=== PATIENT | male | born 1955 | race Caucasian/White ===

== ENCOUNTER 2017-03-20 15:55 | Inpatient (IN) | payer MEDICAID ==
[2017-03-20] MEDS ORDERED: NS 1,000 ML IV ONE (16:06)
[2017-03-20] MEDS ORDERED: ONDANSETRON 4 MG/2 ML VIAL IVP ONE ×2 (16:06→17:14)
[2017-03-20] MEDS ORDERED: fentaNYL 100 MCG/2 ML INJ IVP ONE ×2 (16:06→16:47)
--- NOTE | 2017-03-20 16:18 | EDPHY ---
H & P Stated Complaint: fall 6 feet landing on rt side of body Time Seen by Provider: 03/20/17 16:06 HPI/ROS: CHIEF COMPLAINT: Right-sided rib pain HISTORY OF PRESENT ILLNESS: The patient is a 61-year-old man who fell off of a ladder while painting his house. He fell approximately 6 feet onto the right side of his ribs. He has severe rib pain and feels short of breath. He had no symptoms prior to his fall. He denies chest pain. He denies head neck or back pain. He has been ambulatory. He denies injuries to his arms or legs. No abdominal pain. REVIEW OF SYSTEMS: Constitutional: denies: chills, fever, recent illness, recent injury EENTM: denies: blurred vision, double vision, nose congestion Respiratory: denies: cough, shortness of breath Cardiac: denies: chest pain, irregular heart rate, lightheadedness, palpitations Gastrointestinal/Abdominal: denies: abdominal pain, diarrhea, nausea, vomiting, blood streaked stools Genitourinary: denies: dysuria, frequency, hematuria, pain Musculoskeletal: See HPI Skin: denies: lesions, rash, jaundice, bruising Neurological: denies: headache, numbness, paresthesia, tingling, dizziness, weakness Hematologic/Lymphatic: denies: blood clots, easy bleeding, easy bruising Immunologic/allergic: denies: HIV/AIDS, transplant Nursing assessment reviewed Vital signs reviewed saturating 91%. Blood pressure 100/60., diaphoretic Patient is alert not anxious or lethargic and in no distress HEAD: shows no evidence of trauma no raccoon eyes, no Rasmussen sign. NECK: is nontender and has painless range of motion, trachea is midline, NEXUS criteria negative (no midline tenderness no distracting injury no altered mental status no recent alcohol and no focal neuro deficits EYES: pupils equal round reactive to light and accommodating, extraocular muscles are intact no palsy or entrapment, no subconjunctival hemorrhage ENT: Normal external inspection, airway intact, no dental or oral injuries, no clotted nasal blood, no septal hematoma, no hemotympanum CARDIOVASCULAR: heart sounds normal, not tachycardic or bradycardic, Chest is non-tender no rib tenderness no palpable fracture, no crepitus, no subcutaneous emphysema RESPIRATORY: Decreased breath sounds on the right. Tenderness to the mid axillary line, no crepitus ABDOMEN: Abdomen is nontender in all 4 quadrants no guarding no rebound, no distention, no hernias, no masses or bruits. GENITAL/RECTAL: Normal external inspection, no blood at urethral meatus, Stable pelvis NEUROLOGIC/PSYCH: Oriented x3, cranial nerves normal as assessed, face symmetrical, sensation normal, motor grossly normal, not perseverating, cranial nerves II through XII intact normal reflexes Uriel Coma score: 15 SKIN: Intact, warm, dry, no ecchymosis, no lacerations, diaphoretic BACK: No CVA tenderness, no vertebral point tenderness, no muscle spasm normal range of motion EXTREMITIES: Atraumatic, pelvis stable, nontender able to bear weight, no pulse deficit, normal range of motion, normal color and temperature Source: Patient Exam Limitations: No limitations - Personal History Current Tetanus/Diphtheria Vaccine: Yes Current Tetanus Diphtheria and Acellular Pertussis (TDAP): Yes - Medical/Surgical History Hx Asthma: No Hx Chronic Respiratory Disease: No Hx Diabetes: No Hx Cardiac Disease: No Hx Renal Disease: No Hx Cirrhosis: No Hx Alcoholism: No Hx HIV/AIDS: No Hx Splenectomy or Spleen Trauma: No Other PMH: Denies - Family History Significant Family History: No pertinent family hx - Social History Smoking Status: Light smoker Alcohol Use: Sober Drug Use: None Constitutional: Initial Vital Signs Temperature (C) 36.8 C 03/20/17 16:04 Heart Rate 79 03/20/17 16:04 Respiratory Rate 16 03/20/17 16:04 Blood Pressure 113/73 03/20/17 16:04 O2 Sat (%) 91 L 03/20/17 16:04 O2 Delivery Mode Room Air Allergies/Adverse Reactions: No Known Allergies Allergy (Unverified 03/20/17 16:01) Home Medications: Medication Instructions Recorded Aspirin [Aspirin 81mg (*)] 81 mg PO DAILY 03/20/17 Atorvastatin Calcium [Lipitor 40 40 mg PO DAILY 03/20/17 mg (*)] Losartan Potassium [Cozaar 25 mg 25 mg PO DAILY 03/20/17 (*)] Metoprolol Tartrate [Lopressor 50 50 mg PO BID 03/20/17 mg (*)] Medical Decision Making - Diagnostics EKG Interpretation: An EKG obtained and was read and documented in trace view. Please see trace view for full reading and report. Sinus rhythm, no acute ischemic changes Imaging Results: Imaging Impressions Chest X-Ray 03/20/17 16:06 Impression: Poor inspiratory effort, with bronchovascular crowding of both lower lobes, probably atelectasis in the right lower lobe. Right lateral rib fracture, with adjacent subcutaneous emphysema. Abdomen CT 03/20/17 16:14 Impression: No evidence for acute intraabdominal or pelvic abnormality. Hepatic cysts and left renal cyst. Multilevel degenerative change lumbar spine , with a chronic bilateral spondylolysis at L5 and grade 1 anterior spondylolisthesis of L5 on S1. CT Chest, With IV Contrast History: Trauma. Fall from ladder on right side. Severe pain and difficulty breathing. Technique: 5-mm helical images were obtained of the chest post intravenous contrast, with 90 mL Isovue-300 contrast. Multiplanar reformation was performed. Radiation dose reduction technique was utilized. Findings: There are comminuted mildly displaced rib fractures of the 7th, 8th, and 9th ribs. This is seen laterally and posteriorly. There is subcutaneous emphysema at the posterolateral right chest wall. A very small right pneumothorax is seen. Some air is seen tracking anteriorly in the fat pad superior to the anterior diaphragm. No significant mediastinal or hilar lymphadenopathy. No evidence for mediastinal hematoma. There appears to be mild thickening of the septum, which could represent a hypertrophic cardiomyopathy. No evidence for a pericardial effusion. Degenerative change is seen in the thoracic spine. Mild atelectasis in the right middle lobe inferiorly and right lung base. Mild dependent pulmonary edema posteriorly. Impression: Multiple comminuted and mildly displaced rib fractures of the right 7th, 8th, and 9th ribs. Small right pneumothorax. Subcutaneous emphysema. Results called and discussed with Marcio Holley M.D., on March 20, 2017 at 1703 hours. Findings also discussed with Dr. Costa Galvez. Cervical Spine CT 03/20/17 16:14 Impression: No evidence for acute intracranial abnormality. Left maxillary sinusitis. Fracture in the left first maxillary molar, with dental cavity. CT Cervical Spine, Without Contrast History: Trauma. Fall. Technique: 0.625-mm helical images were obtained of the cervical spine, without contrast. Multiplanar reformation was performed. Radiation dose reduction technique was utilized. Findings: No evidence for a cervical spine fracture. Multilevel degenerative disk and degenerative joint disease are seen in the cervical spine. No evidence for prevertebral soft tissue swelling. Of note is the vertebral artery canal on the right at C4 that extends partially into the lateral margin of the vertebral body. The C2-C3 level demonstrates mild uncovertebral joint hypertrophy and facet arthropathy causing no significant encroachment. The C3-C4 level demonstrates uncovertebral joint hypertrophy and spurring and facet arthropathy, more predominant on the left. Mild to moderate left and mild right neural foraminal narrowing. The C4-C5 level demonstrates uncovertebral joint hypertrophy and spurring and facet arthropathy bilaterally causing mild to moderate bilateral neural foraminal narrowing. The C5-C6 level demonstrates a broad-based annular bulge mildly effacing the anterior thecal sac. Uncovertebral joint hypertrophy and spurring are seen bilaterally and facet arthropathy causing moderate left and right neural foraminal narrowing. The C6-C7 level demonstrates a broad-based annular bulge moderately effacing the anterior thecal sac, with posterior spurring. Uncovertebral joint hypertrophy and spurring and facet arthropathy are seen bilaterally causing moderate to severe bilateral neural foraminal narrowing. C7-T1 level demonstrates facet arthropathy bilaterally causing minimal bilateral neural foraminal encroachment. Impression: 1. Multilevel degenerative disk and degenerative joint disease cervical spine, most predominant at C5-C6 and C6-C7. Please see detailed description by level above. 2. No evidence for cervical spine fracture. Results called and discussed with Marcio Holley M.D., on March 20, [address] 03/20/17 16:14 Impression: No evidence for acute intraabdominal or pelvic abnormality. Hepatic cysts and left renal cyst. Multilevel degenerative change lumbar spine , with a chronic bilateral spondylolysis at L5 and grade 1 anterior spondylolisthesis of L5 on S1. CT Chest, With IV Contrast History: Trauma. Fall from ladder on right side. Severe pain and difficulty breathing. Technique: 5-mm helical images were obtained of the chest post intravenous contrast, with 90 mL Isovue-300 contrast. Multiplanar reformation was performed. Radiation dose reduction technique was utilized. Findings: There are comminuted mildly displaced rib fractures of the 7th, 8th, and 9th ribs. This is seen laterally and posteriorly. There is subcutaneous emphysema at the posterolateral right chest wall. A very small right pneumothorax is seen. Some air is seen tracking anteriorly in the fat pad superior to the anterior diaphragm. No significant mediastinal or hilar lymphadenopathy. No evidence for mediastinal hematoma. There appears to be mild thickening of the septum, which could represent a hypertrophic cardiomyopathy. No evidence for a pericardial effusion. Degenerative change is seen in the thoracic spine. Mild atelectasis in the right middle lobe inferiorly and right lung base. Mild dependent pulmonary edema posteriorly. Impression: Multiple comminuted and mildly displaced rib fractures of the right 7th, 8th, and 9th ribs. Small right pneumothorax. Subcutaneous emphysema. Results called and discussed with Marcio Holley M.D., on March 20, 2017 at 1703 hours. Findings also discussed with Dr. Costa Galvez. Head CT 03/20/17 16:14 Impression: No evidence for acute intracranial abnormality. Left maxillary sinusitis. Fracture in the left first maxillary molar, with dental cavity. CT Cervical Spine, Without Contrast History: Trauma. Fall. Technique: 0.625-mm helical images were obtained of the cervical spine, without contrast. Multiplanar reformation was performed. Radiation dose reduction technique was utilized. Findings: No evidence for a cervical spine fracture. Multilevel degenerative disk and degenerative joint disease are seen in the cervical spine. No evidence for prevertebral soft tissue swelling. Of note is the vertebral artery canal on the right at C4 that extends partially into the lateral margin of the vertebral body. The C2-C3 level demonstrates mild uncovertebral joint hypertrophy and facet arthropathy causing no significant encroachment. The C3-C4 level demonstrates uncovertebral joint hypertrophy and spurring and facet arthropathy, more predominant on the left. Mild to moderate left and mild right neural foraminal narrowing. The C4-C5 level demonstrates uncovertebral joint hypertrophy and spurring and facet arthropathy bilaterally causing mild to moderate bilateral neural foraminal narrowing. The C5-C6 level demonstrates a broad-based annular bulge mildly effacing the anterior thecal sac. Uncovertebral joint hypertrophy and spurring are seen bilaterally and facet arthropathy causing moderate left and right neural foraminal narrowing. The C6-C7 level demonstrates a broad-based annular bulge moderately effacing the anterior thecal sac, with posterior spurring. Uncovertebral joint hypertrophy and spurring and facet arthropathy are seen bilaterally causing moderate to severe bilateral neural foraminal narrowing. C7-T1 level demonstrates facet arthropathy bilaterally causing minimal bilateral neural foraminal encroachment. Impression: 1. Multilevel degenerative disk and degenerative joint disease cervical spine, most predominant at C5-C6 and C6-C7. Please see detailed description by level above. 2. No evidence for cervical spine fracture. Results called and discussed with Marcio Holley M.D., on March 20, 2017 at 1657. Imaging: Discussed imaging studies w/ house calls nurse practitioner Radiologist ED Course/Re-evaluation: I was called to room 11 to evaluate the patient. He is diaphoretic and dyspneic. Decreased breath sounds heard on the right. He was moved to the trauma room and called a limited trauma. Fast exam is negative including lung windows. Initial x-ray viewed at the bedside and no visible pneumothorax seen. The patient will be sent to CT scan. His vital signs remained stable. He was given fentanyl. 5:35 p.m. the patient has been evaluated by Dr. Costa Galvez will admit to the trauma service for pain control. Differential Diagnosis: Partial list of the Differential diagnosis considered include but were not limited to; rib fracture, tension pneumothorax and although unlikely based on the history and physical exam, I also considered liver injury, back injury, head injury. - Data Points Laboratory Results: Laboratory Results 03/20/17 16:07 03/20/17 16:07 03/20/17 03/20/17 03/20/17 16:07 16:07 16:07 WBC RBC Hgb Hct MCV MCH MCHC RDW Plt Count MPV Neut % (Auto) Lymph % (Auto) [place] % (Auto) Eos % (Auto) Baso % (Auto) Nucleat RBC Rel Count Absolute Neuts (auto) Absolute Lymphs (auto) Absolute Monos (auto) Absolute Eos (auto) Absolute Basos (auto) Absolute Nucleated RBC Immature Gran % Immature Gran # PT 13.5 SEC SEC (12.0-15.0) INR 1.04 (0.83-1.16) APTT 24.1 SEC SEC (23.0-38.0) Sodium 142 mEq/L mEq/L (134-144) Potassium 3.8 mEq/L mEq/L (3.5-5.2) Chloride 105 mEq/L mEq/L (97-110) Carbon Dioxide 23 mEq/l mEq/l (22-31) Anion Gap 14 mEq/L mEq/L (8-16) BUN 18 mg/dL mg/dL (7-23) Creatinine 1.1 mg/dL mg/dL (0.7-1.3) Estimated GFR > 60 Glucose 114 mg/dL H mg/dL (70-100) Calcium 9.9 mg/dL mg/dL (8.5-10.4) Ethyl Alcohol 17 mg/dL H mg/dL (0-10) Patient ABO/Rh A NEGATIVE Antibody Screen POSITIVE Antibody Identification Anti-D 03/20/17 16:07 WBC 12.36 10^3/uL H 10^3/uL (3.80-9.50) RBC 5.05 10^6/uL 10^6/uL (4.40-6.38) Hgb 15.9 g/dL g/dL (13.7-17.5) Hct 45.4 % % (40.0-51.0) MCV 89.9 fL fL (81.5-99.8) MCH 31.5 pg pg (27.9-34.1) MCHC 35.0 g/dL g/dL (32.4-36.7) RDW 12.9 % % (11.5-15.2) Plt Count 244 10^3/uL 10^3/uL (150-400) MPV 9.0 fL fL (8.7-11.7) Neut % (Auto) 62.3 % % (39.3-74.2) Lymph % (Auto) 25.6 % % (15.0-45.0) [place] % (Auto) 7.6 % % (4.5-13.0) Eos % (Auto) 2.9 % % (0.6-7.6) Baso % (Auto) 1.0 % % (0.3-1.7) Nucleat RBC Rel Count 0.0 % % (0.0-0.2) Absolute Neuts (auto) 7.71 10^3/uL H 10^3/uL (1.70-6.50) Absolute Lymphs (auto) 3.16 10^3/uL H 10^3/uL (1.00-3.00) Absolute Monos (auto) 0.94 10^3/uL H 10^3/uL (0.30-0.80) Absolute Eos (auto) 0.36 10^3/uL 10^3/uL (0.03-0.40) Absolute Basos (auto) 0.12 10^3/uL H 10^3/uL (0.02-0.10) Absolute Nucleated RBC 0.00 10^3/uL 10^3/uL (0-0.01) Immature Gran % 0.6 % % (0.0-1.1) Immature Gran # 0.07 10^3/uL 10^3/uL (0.00-0.10) PT INR APTT Sodium Potassium Chloride Carbon Dioxide Anion Gap BUN Creatinine Estimated GFR Glucose Calcium Ethyl Alcohol Patient ABO/Rh Antibody Screen Antibody Identification Medications Given: Diazepam (Valium) 5 - 10 mg PO Q4HRS PRN PRN Reason: Spasms Stop: 09/16/17 17:40 Last Admin: 03/20/17 19:49 Dose: 5 mg Hydromorphone HCl (Dilaudid) 0.5 - 1 mg IVP Q2HRS PRN PRN Reason: Pain, Severe Unable to Take PO Stop: 03/30/17 17:40 Last Admin: 03/20/17 22:05 Dose: 1 mg Ketorolac Tromethamine (Toradol) 15 mg IVP Q6 ISAAC Stop: 03/25/17 17:59 Last Admin: 03/20/17 18:39 Dose: Not Given Oxycodone HCl (Oxycodone Ir) 5 - 15 mg PO Q3HRS PRN PRN Reason: Pain, Severe Able to Take PO Stop: 03/30/17 17:40 Last Admin: 03/20/17 21:56 Dose: 15 mg Discontinued Medications Cephalexin HCl (Keflex) 500 mg PO EDNOW ONE PRN Reason: Protocol Stop: 03/20/17 17:28 Last Admin: 03/20/17 17:44 Dose: Not Given Diazepam (Valium Injection) 5 mg IVP EDNOW ONE Stop: 03/20/17 17:26 Last Admin: 03/20/17 17:59 Dose: 5 mg Fentanyl (Sublimaze) 100 mcg IVP EDNOW ONE Stop: 03/20/17 16:07 Last Admin: 03/20/17 16:15 Dose: 100 mcg Fentanyl (Sublimaze) 100 mcg IVP EDNOW ONE Stop: 03/20/17 16:48 Last Admin: 03/20/17 16:50 Dose: 100 mcg Hydromorphone HCl (Dilaudid) 1 mg IVP EDNOW ONE Stop: 03/20/17 17:14 Last Admin: 03/20/17 17:23 Dose: 1 mg Sodium Chloride (Ns) 1,000 mls @ 0 mls/hr IV ONCE ONE; Wide Open PRN Reason: Protocol Stop: 03/20/17 16:07 Last Admin: 03/20/17 16:15 Dose: 1,000 mls Ketorolac Tromethamine (Toradol) 30 mg IVP EDNOW ONE Stop: 03/20/17 17:26 Last Admin: 03/20/17 17:58 Dose: 30 mg Ondansetron HCl (Zofran) 4 mg IVP EDNOW ONE Stop: 03/20/17 16:07 Last Admin: 03/20/17 17:11 Dose: Not Given Ondansetron HCl (Zofran) 4 mg IVP EDNOW ONE Stop: 03/20/17 17:15 Last Admin: 03/20/17 17:44 Dose: Not Given Departure - Departure Disposition: [facility] Inpatient Acute Clinical Impression: Ribs, multiple fractures Qualifiers: Encounter type: initial encounter Fracture type: closed Laterality: right Qualified Code(s): S22.41XA - Multiple fractures of ribs, right side, initial encounter for closed fracture Pneumothorax Qualifiers: Pneumothorax type: traumatic Encounter type: initial encounter Qualified Code(s ): S27.0XXA - Traumatic pneumothorax, initial encounter Condition: Fair
[2017-03-20 16:21] LABS: % IMMATURE GRANULYOCYTES 0.6 % (0.0-1.1); ABSOLUTE IMMATURE GRANULOCYTES 0.07 10^3/uL (0.00-0.10); ADD DIFF? NO; ADD MORPH? NO; ADD SCAN? NO; ATYPICAL LYMPHOCYTE FLAG 0 (0-99); FRAGMENT RBC FLAG 0 (0-99); HEMATOCRIT 45.4 % (40.0-51.0); HEMOGLOBIN 15.9 g/dL (13.7-17.5); LEFT SHIFT FLG 0 (0-99); LIPEMIA HEMOLYSIS FLAG 90 (0-99); MEAN CELL HEMOGLOBIN 31.5 pg (27.9-34.1); MEAN CELL VOLUME 89.9 fL (81.5-99.8); PLATELET CLUMPS FLAG 10 (0-99); PLATELET COUNT 244 10^3/uL (150-400); RED BLOOD CELL COUNT 5.05 10^6/uL (4.40-6.38); RED CELL DISTRIBUTION WIDTH 12.9 % (11.5-15.2)
[2017-03-20] MEDS ORDERED: IOPAMIDOL (ISOVUE-300) 100 ML BTL ONE (16:26)
[2017-03-20 16:32] LABS: INR 1.04 (0.83-1.16); PROTIME(PATIENT) 13.5 SEC (12.0-15.0)
[2017-03-20 16:33] LABS: APTT 24.1 SEC (23.0-38.0)
[2017-03-20 16:38] LABS: ANION GAP 14 mEq/L (8-16); CALCIUM 9.9 mg/dL (8.5-10.4); CARBON DIOXIDE 23 mEq/l (22-31); CHLORIDE 105 mEq/L (97-110); CREATININE 1.1 mg/dL (0.7-1.3); ETHANOL SERUM 17 mg/dL (0-10); GLOMERULAR FILTRATION RATE > 60; GLUCOSE 114 mg/dL (70-100); POTASSIUM 3.8 mEq/L (3.5-5.2); SODIUM 142 mEq/L (134-144)
--- NOTE | 2017-03-20 16:51 | CPEKG ---
Heart Rate: 80 RR Interval: 750 P-R Interval: 172 QRSD Interval: 84 QT Interval: 404 QTC Interval: 466 P [place]: 59 QRS [place]: -84 T Wave [place]: 87 EKG Severity - ABNORMAL ECG - EKG Impression: SINUS RHYTHM EKG Impression: LAD, CONSIDER LAFB OR INFERIOR INFARCT Electronically Signed By: Marcio Holley 20-Mar-2017 16:52:24
[2017-03-20] MEDS ORDERED: HYDROmorphONE/DILAUDID 1 MG/ML INJ IVP ONE (17:13)
[2017-03-20] MEDS ORDERED: KETOROLAC 30 MG/1 ML SDV IVP ONE (17:25)
[2017-03-20] MEDS ORDERED: DIAZEPAM 10 MG/2 ML SYR IVP ONE (17:25)
[2017-03-20] MEDS ORDERED: CEPHALEXIN 500 MG CAP PO ONE (17:27)
[2017-03-20] MEDS ORDERED: ONDANSETRON 4 MG/2 ML VIAL IVP PRN (17:41)
--- NOTE | 2017-03-20 18:06 | GCON ---
[f rep st] CONSULTATION DATE OF CONSULTATION: 03/20/2017 REFERRING PHYSICIAN: Marcio Holley MD REASON FOR EVALUATION: Trauma. HISTORY OF PRESENT ILLNESS: 61-year-old male sustained an approximately 6-foot fall while working on a ladder. He simply lost his footing and fell and the ladder toppled. He landed on his right chest directly on the ladder. He denied loss of consciousness. He reported immediate chest pain with shortness of breath. He was brought to the emergency room for further workup and evaluation. Imaging in the emergency department disclosed evidence of multiple right posterior rib fractures with a small pneumothorax. Surgery has been requested for further evaluation and management. The patient at present time reports right-sided chest pain only. He denies headaches, visual changes, or neck pain. He denies abdominal complaints. He denies pelvic pain. He denies extremity numbness, tingling, or discomfort. He denies back pain. PAST MEDICAL HISTORY: Hypertension, query arrhythmia--seen by Taj Mendoza at [facility]. PAST SURGICAL HISTORY: Left knee arthroscopy. MEDICATIONS: Atorvastatin, metoprolol, losartan, aspirin. ALLERGIES: No known drug allergies. SOCIAL HISTORY: No significant alcohol or tobacco. . REVIEW OF SYSTEMS: Notable for acute traumatic issues only. Otherwise, a negative 12-point review. FAMILY HISTORY: Noncontributory. PHYSICAL EXAMINATION: VITAL SIGNS: Temperature 36.8, blood pressure 113/73, pulse 79, respirations 16, 91% saturation on room air. GENERAL: The patient is alert, appropriate, extremely uncomfortable. HEENT: Scalp was atraumatic. NECK: Cervical spine nontender. Trachea midline without crepitus. HEART: Regular without murmurs. LUNGS: Clear bilaterally--diminished throughout right lung rodrigues. CHEST WALL: Diffuse right-sided chest wall tenderness. Normal left chest wall. Normal sternum. ABDOMEN: Soft, nontender, nondistended. PELVIS: Nontender. EXTREMITIES: Normal bilateral upper and lower extremities without step-offs or deformities. 2+ radial as well as pedal pulses bilaterally. SPINE: Nontender thoracic and lumbar spines centrally. SKIN: Normal. NEUROLOGIC: Alert and appropriate x3. LABORATORY DATA: Alcohol negligible. Electrolytes within reference range. Hemoglobin 16, white count 12, platelets of 244. CT of the head without acute injury. CT of the chest with multiple right posterior rib fractures, #7 through 9, with minimal pneumothorax, prominent diaphragmatic fat pad, and prominent atrial septum. Images were directly reviewed on PACS and with radiologist. CT abdomen and pelvis without acute findings. Thoracic and lumbar spine with chronic multilevel degenerative disease changes. IMPRESSIONS: 1. Fall of 6 feet. 2. Multiple right posterior rib fractures with small CT noted pneumothorax without significant hemothorax. PLAN: The patient will be admitted for pain control. Will repeat imaging studies to assess for pneumothorax evolution. Findings and recommendations were discussed with the patient, and with emergency room physician conference interpreter. /[id number]/MODL MTDD
[2017-03-20] MEDS: KETOROLAC 15 MG/1 ML SDV IVP SCH (18:39)
[2017-03-20] MEDS: oxyCODONE IR 15 MG TAB PO PRN ×2 (18:45→21:56)
[2017-03-20] MEDS: DIAZEPAM 5 MG TAB PO PRN (19:49)
[2017-03-20] MEDS: HYDROmorphONE/DILAUDID 1 MG/ML INJ IVP PRN (22:05)
[2017-03-21] MEDS: KETOROLAC 15 MG/1 ML SDV IVP SCH ×5 (00:51→18:44)
[2017-03-21] MEDS: oxyCODONE IR 15 MG TAB PO PRN ×5 (06:04→20:38)
[2017-03-21] MEDS: DIAZEPAM 5 MG TAB PO PRN ×4 (06:05→20:38)
[2017-03-21] MEDS: DOCUSATE SODIUM 100 MG CAP PO SCH ×2 (09:15→20:34)
[2017-03-21] MEDS ORDERED: PNEUMOCOCCAL 0.5ML VACCINE VIAL IM ONE (10:54)
[2017-03-21] MEDS ORDERED: FLU VACC QS 2017-18 (3YR+)/PF 0.5 ML SYR (FLUARIX QUAD) IM ONE (10:54)
--- NOTE | 2017-03-21 13:45 | SOAPPROG ---
SOAP Progress Note Assessment/Plan: Assessment: TERTIARY SURVEY: 58-YEAR-OLD MALE WITH A 6 FOOT FALL OFF A LADDER SUSTAINING 3 RIGHT RIB FRACTURES/DOING WELL BUT HAVING CONSIDERABLE PAIN AND SOME HYPOVENTILATION HEENT WITHOUT EVIDENCE OF TRAUMA, NO ORAL LESIONS, PUPILS NORMAL CHEST CLEAR AND SYMMETRIC BUT TENDER ON THE RIGHT SIDE COR REGULAR RHYTHM ABDOMEN IS SOFT NONTENDER WITH NO SIGNS OF INJURY EXTREMITIES FULL PULSES FULL RANGE OF MOTION NEURO INTACT AND SYMMETRIC IMPRESSION NO OTHER MAJOR INJURIES EXCEPT FOR THE RIB FRACTURES Plan: POSSIBLY HOME TODAY ON O2 IF COMFORTABLE WITH PAIN MEDS 03/21/17 13:41 Objective: Vital Signs Temp Pulse Resp BP Pulse Ox 37.1 C 81 16 99/65 L 85 L 03/21/17 08:00 03/21/17 08:00 03/21/17 08:00 03/21/17 08:00 03/21/17 12:00 03/20/17 03/21/17 03/22/17 05:59 05:59 05:59 Intake Total 1000 Balance 1000 PT 13.5 SEC (12.0-15.0) 03/20/17 16:07 INR 1.04 (0.83-1.16) 03/20/17 16:07 ICD10 Worksheet Patient Problems: Problems Problem Status Onset Pneumothorax Acute Ribs, multiple fractures Acute
[2017-03-21] MEDS: HYDROmorphONE/DILAUDID 1 MG/ML INJ IVP PRN ×2 (16:06→18:43)
--- NOTE | 2017-03-21 16:35 | ASMTCMCOM ---
CM Note CM Note Notes: 73 year old male, fell 6' from a ladder, sustained rib fx's and pneumothorax. Patient has a hx of HTN. Neuro intact. will be discharged today when pain is controlled. Lives with his . RT to set up home O2. No other dischage needs. Date Signed: 03/21/2017 04:34 PM Electronically Signed By:Tyra Carter LCSW
--- NOTE | 2017-03-21 17:21 | PDHOMEO2F ---
Home Oxygen Face to Face Home Orders: I certify that a physician or a nurse practitioner or physician's assistant technician has had a [id number] encounter with this patient on the date of this order due to the diagnosis listed, which relates to the primary reason the patient requires home oxygen. Alternative treatments have been tried, or considered, and deemed ineffective. It is anticipated that supplemental oxygen will result in improvement with treatment. Home oxygen qualifying diagnosis: Rib fractures with atelectasis Home oxygen secondary diagnosis: Suspected Obesity Hypoventilation Syndrome SpO2 on room air (%): 85 Frequency of home oxygen needed: continuous Home oxygen liters per minute: 2 Home oxygen delivery device: nasal cannula Concentrator: Yes E-tanks for mobility and back up: Yes If ordering portable O2, is the patient mobile in the home?: Yes I certify that, based on these findings, the home oxygen is medically necessary for this patient for the following length of time. Length of time home oxygen needed: 1 month
[2017-03-21] MEDS ORDERED: HYDROmorphONE/DILAUDID 6 MG/30 ML PCA IV PRN (19:41)
[2017-03-21] MEDS ORDERED: NALOXONE HCL 0.4 MG/ML INJ IVP PRN (19:41)
[2017-03-21] MEDS: METOPROLOL TARTRATE 50 MG TAB PO SCH (20:34)
[2017-03-22] MEDS: KETOROLAC 15 MG/1 ML SDV IVP SCH ×2 (00:07→05:32)
[2017-03-22] MEDS: oxyCODONE IR 15 MG TAB PO PRN ×3 (00:07→08:28)
[2017-03-22] MEDS: DIAZEPAM 5 MG TAB PO PRN (02:20)
[2017-03-22] MEDS: HYDROmorphONE/DILAUDID 1 MG/ML INJ IVP PRN (02:20)
[2017-03-22] MEDS: LOSARTAN POTASSIUM 25 MG TAB PO SCH (08:27)
[2017-03-22] MEDS: DOCUSATE SODIUM 100 MG CAP PO SCH ×2 (08:27→20:10)
[2017-03-22] MEDS: ASPIRIN 81 MG CHEWABLE TAB PO SCH (08:28)
[2017-03-22] MEDS: ATORVASTATIN CALCIUM 40 MG TAB PO SCH (08:28)
[2017-03-22] MEDS: METOPROLOL TARTRATE 50 MG TAB PO SCH ×2 (08:28→21:08)
--- NOTE | 2017-03-22 11:18 | SOAPPROG ---
SOAP Progress Note Assessment/Plan: Assessment/Plan: 61 Y M s/p 6 foot fall c R posterior rib fractures, small PTX. Discharge held 2/2 pain crisis. Will adjust medicines. Possible d/c if pain controlled on oral regimen. Encourage deep breathing and IS. Does not want epidural since he wants to go home soon. S: pain last night. unbearable. denies sob but can't take deep breath 2/2 pain. O: alert, nad no wob, ctab rrr abd soft, obese ext wwp 03/22/17 11:15 Objective: Vital Signs Temp Pulse Resp BP Pulse Ox 36.8 C 81 16 112/74 77 L 03/22/17 08:00 03/22/17 08:28 03/22/17 08:00 03/22/17 08:28 03/22/17 10:45 03/21/17 03/22/17 03/23/17 05:59 05:59 05:59 Intake Total 500 Balance 500 PT 13.5 SEC (12.0-15.0) 03/20/17 16:07 INR 1.04 (0.83-1.16) 03/20/17 16:07 ICD10 Worksheet Patient Problems: Problems Problem Status Onset Pneumothorax Acute Ribs, multiple fractures Acute
[2017-03-22] MEDS: OXYCODONE/APAP 5/325 TAB PO PRN ×2 (12:56→18:06)
[2017-03-22] MEDS: CYCLOBENZAPRINE 10 MG TAB PO SCH ×2 (16:34→21:26)
[2017-03-22] MEDS: IBUPROFEN 600 MG TAB PO PRN (20:10)
[2017-03-23] MEDS: OXYCODONE/APAP 5/325 TAB PO PRN ×4 (02:14→17:53)
[2017-03-23] MEDS: IBUPROFEN 600 MG TAB PO PRN ×3 (08:03→22:40)
[2017-03-23] MEDS: METOPROLOL TARTRATE 50 MG TAB PO SCH ×2 (08:04→20:54)
[2017-03-23] MEDS ORDERED: MAGNESIUM HYDROXIDE 30 ML UDCUP PO PRN (09:12)
[2017-03-23] MEDS ORDERED: BISACODYL 10 MG SUPP PR PRN (09:12)
[2017-03-23] MEDS ORDERED: LACTULOSE 20 GM/30 ML UDCUP PO PRN (09:12)
[2017-03-23] MEDS: DOCUSATE SODIUM 100 MG CAP PO SCH ×2 (09:14→20:54)
[2017-03-23] MEDS: ATORVASTATIN CALCIUM 40 MG TAB PO SCH (09:14)
--- NOTE | 2017-03-23 09:14 | TRAUMAPN ---
<Karina Vela - Last Filed: 03/23/17 17:56> Assessment/Plan: ADDENDUM - acute episode of chest pain this afternoon with breathing. CXR stable. Chest CT angio neg for PE. Displaced rib fractures 6-9. May consider rib plating 61yo M s/p 6 foot fall from ladder with R posterior rib fractures, small PTX. Pain still an issue IS deep breathing Dispo: DC home when pain controlled with PO meds. Seen c Dr. Middleton. S: severe pain last night. unable to get comfortable. no SOB or cough. O: sitting upright in chair, comfortable, NAD NCAT no hearing defecits, PER, MMM, no scleral icterus No increased WOB, decreased bases bilaterally RRR mood and affect normal neuro grossly intact skin warm and dry without abrasions/lacerations Objective: Vital Signs Temp Pulse Resp BP Pulse Ox 36.6 C 76 16 105/60 93 03/23/17 07:50 03/23/17 08:11 03/23/17 08:11 03/23/17 07:50 03/23/17 08:11 03/22/17 03/23/17 03/24/17 05:59 05:59 05:59 Intake Total 500 350 Balance 500 350 PT 13.5 SEC (12.0-15.0) 03/20/17 16:07 INR 1.04 (0.83-1.16) 03/20/17 16:07 <Angeles Middleton - Last Filed: 03/23/17 23:08> Assessment/Plan: Feeling improved this evening. Does not want surgery. Eager to go home if pain controlled. Repeat cxr in am Objective: Vital Signs Temp Pulse Resp BP Pulse Ox 36.7 C 84 19 105/59 L 91 L 03/23/17 15:51 03/23/17 15:51 03/23/17 15:51 03/23/17 15:51 03/23/17 15:51 03/22/17 03/23/17 03/24/17 05:59 05:59 05:59 Intake Total 500 1000 Output Total 350 Balance 500 650 PT 13.5 SEC (12.0-15.0) 03/20/17 16:07 INR 1.04 (0.83-1.16) 03/20/17 16:07
[2017-03-23] MEDS: ASPIRIN 81 MG CHEWABLE TAB PO SCH (09:15)
[2017-03-23] MEDS: CYCLOBENZAPRINE 10 MG TAB PO SCH ×3 (09:15→20:54)
[2017-03-23] MEDS: POLYETHYLENE GLYCOL 3350 17 GM PKT PO PRN (11:41)
--- NOTE | 2017-03-23 11:50 | ASMTCMCOM ---
CM Note CM Note Notes: CM spoke w/ Karime RN regarding d/c POC. Pt needs either a recliner or a pillow wedge to rest up right. CM met w/ pt and provided info to obtain a pillow wedge from the [facility] in [place]. Pt will most likely d/c independent w/out any needs. CM available for changes. Date Signed: 03/23/2017 11:50 AM Electronically Signed By:DEREJE Gotti
[2017-03-23] MEDS: LOSARTAN POTASSIUM 25 MG TAB PO SCH (11:54)
[2017-03-23] MEDS: HYDROmorphONE/DILAUDID 1 MG/ML INJ IVP PRN (13:35)
[2017-03-23] MEDS ORDERED: IOPAMIDOL (ISOVUE 370) 100 ML BTL IV ONE (13:41)
[2017-03-23] MEDS: PATCH REMOVAL 1 EA PATCH TD SCH (20:48)
[2017-03-23] MEDS: LIDOCAINE 5% 1 EA PATCH TD SCH (20:52)
[2017-03-24] MEDS: OXYCODONE/APAP 5/325 TAB PO PRN ×2 (00:33→04:11)
[2017-03-24] MEDS: HYDROmorphONE/DILAUDID 1 MG/ML INJ IVP PRN ×2 (00:38→23:27)
[2017-03-24] MEDS: IBUPROFEN 600 MG TAB PO PRN (05:50)
--- NOTE | 2017-03-24 09:48 | TRAUMAPN ---
- Problem/Surgery Performed (1) Fall from ladder Assessment/Plan: I discussed transfer to home with the patient and his . He will need an appropriate chair and his is arranging this. She requested PT consult and [facility] referral/assessment which is reasonable. I believe he is high risk for VTE and started him on Enoxaparin 40 mg SC qDay for 14 days. (2) Bronchitis due to tobacco use Assessment/Plan: discussed importance of abstinence/currently smoking 4-5 cigarettes/day (3) OLGA on CPAP Assessment/Plan: will use O2 with home CPAP (4) Hypoxemia requiring supplemental oxygen Assessment/Plan: home O2 with CPAP at night (6) Pneumothorax Assessment/Plan: not visible on CXR Qualifiers: Pneumothorax type: traumatic Encounter type: initial encounter Qualified Code(s): S27.0XXA - Traumatic pneumothorax, initial encounter (7) Ribs, multiple fractures Assessment/Plan: multiple rib fractures/still requiring intermitant IV narcotics will increase Oxycontin to 20 BID and switch to Oxy-IR 5-15 q 3H prn Qualifiers: Encounter type: initial encounter Fracture type: closed Laterality: right Qualified Code(s): S22.41XA - Multiple fractures of ribs, right side, initial encounter for closed fracture Subjective: sitting up in chair/non-productive "wet" cough Objective: Vital Signs Temp Pulse Resp BP Pulse Ox 36.4 C 68 16 101/62 94 03/24/17 08:00 03/24/17 08:00 03/24/17 08:00 03/24/17 08:00 03/24/17 08:00 03/23/17 03/24/17 03/25/17 05:59 05:59 05:59 Intake Total 1000 Output Total 350 Balance 650 PT 13.5 SEC (12.0-15.0) 03/20/17 16:07 INR 1.04 (0.83-1.16) 03/20/17 16:07 - C-Spine Clearance Cervical Spine Cleared: Yes Physical Exam - Physical Exam General Appearance: WD/WN, alert, moderate distress Neck: non-tender Respiratory: decreased breath sounds, crackles, rales, wheezing, splinting, pain on movement Cardiac/Chest: regular rate, rhythm Abdomen: non-tender, soft Male Genitalia: deferred Rectal: deferred Back: Normal inspection Skin: warm/dry Neuro/Psych: normal mood/affect, oriented x 3
[2017-03-24] MEDS: ENOXAPARIN 40 MG/0.4 ML SYR SC SCH (10:02)
[2017-03-24] MEDS: CYCLOBENZAPRINE 10 MG TAB PO SCH ×3 (10:03→21:20)
[2017-03-24] MEDS: DOCUSATE SODIUM 100 MG CAP PO SCH ×2 (10:03→21:20)
[2017-03-24] MEDS: METOPROLOL TARTRATE 50 MG TAB PO SCH ×2 (10:03→21:20)
[2017-03-24] MEDS: ASPIRIN 81 MG CHEWABLE TAB PO SCH (10:03)
[2017-03-24] MEDS: ATORVASTATIN CALCIUM 40 MG TAB PO SCH (10:04)
[2017-03-24] MEDS: LIDOCAINE 5% 1 EA PATCH TD SCH (10:04)
--- NOTE | 2017-03-24 10:36 | ASMTCMCOM ---
CM Note CM Note Notes: is requesting for HC; RN services through [facility]. Lovanox has been started today. CM spoke w/ MD regarding d/c POC. CM made a referral through [facility]. [facility] are willing to accept pt. CM to follow. Date Signed: 03/24/2017 10:36 AM Electronically Signed By:DEREJE Gotti
[2017-03-24] MEDS: LOSARTAN POTASSIUM 25 MG TAB PO SCH (15:48)
[2017-03-24] MEDS: oxyCODONE IR 5 MG TAB PO PRN ×2 (16:55→21:21)
[2017-03-24] MEDS: PATCH REMOVAL 1 EA PATCH TD SCH (21:48)
[2017-03-25] MEDS: oxyCODONE IR 5 MG TAB PO PRN ×2 (01:26→08:24)
[2017-03-25] MEDS: HYDROmorphONE/DILAUDID 1 MG/ML INJ IVP PRN (03:47)
[2017-03-25] MEDS ORDERED: KETOROLAC 30 MG/1 ML SDV IVP ONE (08:18)
[2017-03-25] MEDS: LIDOCAINE 5% 1 EA PATCH TD SCH ×2 (08:23→08:42)
[2017-03-25] MEDS: ATORVASTATIN CALCIUM 40 MG TAB PO SCH (08:24)
[2017-03-25] MEDS: DOCUSATE SODIUM 100 MG CAP PO SCH ×2 (08:24→21:23)
[2017-03-25] MEDS: ASPIRIN 81 MG CHEWABLE TAB PO SCH (08:24)
[2017-03-25] MEDS: CYCLOBENZAPRINE 10 MG TAB PO SCH ×3 (08:25→21:59)
[2017-03-25] MEDS: ENOXAPARIN 40 MG/0.4 ML SYR SC SCH (08:25)
[2017-03-25] MEDS: LOSARTAN POTASSIUM 25 MG TAB PO SCH (08:25)
[2017-03-25] MEDS: METOPROLOL TARTRATE 50 MG TAB PO SCH ×2 (08:25→21:41)
[2017-03-25] MEDS: POLYETHYLENE GLYCOL 3350 17 GM PKT PO PRN (08:43)
[2017-03-25] MEDS: ACETAMINOPHEN 325 MG TAB PO PRN ×3 (10:04→21:59)
[2017-03-25] MEDS ORDERED: ALBUTEROL 60 PUFFS/8 GM MDI IH PRN (11:39)
[2017-03-25] MEDS ORDERED: diphenhydrAMINE 25 MG CAP PO PRN ×2 (11:39→12:41)
[2017-03-25] MEDS: KETOROLAC 15 MG/1 ML SDV IVP SCH ×2 (12:10→18:20)
[2017-03-25] MEDS: PANTOPRAZOLE SODIUM 40 MG TAB PO SCH (12:10)
[2017-03-25] MEDS ORDERED: ALBUTEROL 200 PUFFS/18 GM MDI IH PRN (12:59)
--- NOTE | 2017-03-25 20:42 | SOAPPROG ---
SOAP Progress Note Assessment/Plan: Assessment: TERTIARY SURVEY: 58-YEAR-OLD MALE WITH A 6 FOOT FALL OFF A LADDER SUSTAINING 3 RIGHT RIB FRACTURES/DOING WELL BUT HAVING CONSIDERABLE PAIN AND SOME HYPOVENTILATION HEENT WITHOUT EVIDENCE OF TRAUMA, NO ORAL LESIONS, PUPILS NORMAL CHEST CLEAR AND SYMMETRIC BUT TENDER ON THE RIGHT SIDE COR REGULAR RHYTHM ABDOMEN IS SOFT NONTENDER WITH NO SIGNS OF INJURY EXTREMITIES FULL PULSES FULL RANGE OF MOTION NEURO INTACT AND SYMMETRIC IMPRESSION NO OTHER MAJOR INJURIES EXCEPT FOR THE RIB FRACTURES Plan: POSSIBLY HOME TODAY ON O2 IF COMFORTABLE WITH PAIN MEDS 03/21/17 13:41 03/25/17 20:40 Still having a difficult time with pain issues secondary to his right 6 through 8 rib fractures/O2 sats are low without supplemental oxygen and he is having trouble taking a deep breath. We have discussed possible use of an epidural for pain control if he cannot manage this with oral pain medicines. He is requiring a large amount of narcotics. We will add Toradol to see if that will decrease his narcotic use. Hopefully home tomorrow Objective: Vital Signs Temp Pulse Resp BP Pulse Ox 36.4 C 80 20 100/67 93 03/25/17 16:00 03/25/17 16:00 03/25/17 16:00 03/25/17 16:00 03/25/17 16:00 03/24/17 03/25/17 03/26/17 05:59 05:59 05:59 Intake Total 1000 Output Total 350 Balance 650 PT 13.5 SEC (12.0-15.0) 03/20/17 16:07 INR 1.04 (0.83-1.16) 03/20/17 16:07 ICD10 Worksheet Patient Problems: Problems Problem Status Onset Bronchitis due to tobacco use Acute Fall from ladder Acute Hypoxemia requiring supplemental oxygen Acute OLGA on CPAP Acute Obesity (BMI 30-39.9) Acute Pneumothorax Acute Ribs, multiple fractures Acute
[2017-03-25] MEDS: PATCH REMOVAL 1 EA PATCH TD SCH (22:00)
[2017-03-26] MEDS: KETOROLAC 15 MG/1 ML SDV IVP SCH ×2 (00:11→06:07)
[2017-03-26] MEDS: ACETAMINOPHEN 325 MG TAB PO PRN (06:07)
[2017-03-26 07:43] VITALS: BP 110/62; PULSE 92; RESP 14; TEMP 98; O2SAT 90
[2017-03-26] MEDS: ENOXAPARIN 40 MG/0.4 ML SYR SC SCH (08:01)
[2017-03-26] MEDS: LIDOCAINE 5% 1 EA PATCH TD SCH (08:01)
[2017-03-26] MEDS: METOPROLOL TARTRATE 50 MG TAB PO SCH (08:01)
[2017-03-26] MEDS: LOSARTAN POTASSIUM 25 MG TAB PO SCH ×2 (08:02→10:56)
[2017-03-26] MEDS: ASPIRIN 81 MG CHEWABLE TAB PO SCH (08:02)
[2017-03-26] MEDS: DOCUSATE SODIUM 100 MG CAP PO SCH (08:02)
[2017-03-26] MEDS: ATORVASTATIN CALCIUM 40 MG TAB PO SCH (08:02)
[2017-03-26] MEDS: PANTOPRAZOLE SODIUM 40 MG TAB PO SCH (08:02)
[2017-03-26] MEDS: CYCLOBENZAPRINE 10 MG TAB PO SCH (08:02)
[2017-03-26 08:35] LABS: % IMMATURE GRANULYOCYTES 0.3 % (0.0-1.1); ABSOLUTE IMMATURE GRANULOCYTES 0.02 10^3/uL (0.00-0.10); ADD DIFF? NO; ADD MORPH? NO; ADD SCAN? NO; ATYPICAL LYMPHOCYTE FLAG 0 (0-99); FRAGMENT RBC FLAG 0 (0-99); HEMOGLOBIN 12.7 g/dL (13.7-17.5); LEFT SHIFT FLG 0 (0-99); LIPEMIA HEMOLYSIS FLAG 90 (0-99); MEAN CELL HEMOGLOBIN 32.4 pg (27.9-34.1); MEAN CELL HEMOGLOBIN CONCENTR. 35.3 g/dL (32.4-36.7); MEAN CELL VOLUME 91.8 fL (81.5-99.8); MEAN PLATELET VOLUME 8.6 fL (8.7-11.7); PLATELET CLUMPS FLAG 0 (0-99); PLATELET COUNT 171 10^3/uL (150-400); RED BLOOD CELL COUNT 3.92 10^6/uL (4.40-6.38); RED CELL DISTRIBUTION WIDTH 12.8 % (11.5-15.2)
[2017-03-26 08:46] LABS: ANION GAP 3 mEq/L (8-16); CALCIUM 8.7 mg/dL (8.5-10.4); CARBON DIOXIDE 31 mEq/l (22-31); CHLORIDE 99 mEq/L (97-110); GLOMERULAR FILTRATION RATE > 60; GLUCOSE 120 mg/dL (70-100); POTASSIUM 3.9 mEq/L (3.5-5.2); SODIUM 133 mEq/L (134-144)
--- NOTE | 2017-03-26 10:03 | TRAUMAPN ---
Assessment/Plan: 61yo M s/p 6 foot fall from ladder with R posterior rib fractures, small ptx. Pain significantly improved IS deep breathing Repeat CXR this am Supplemental O2 - drops down to mid-80s without. Will likely go home with O2. OT to see prior to DC Dispo: DC home today. F/u 1 week with CXR prior to visit. Seen c Dr. Middleton. S: pain significantly improved. was able to sleep last night. no SOB or cough. O: sitting upright in chair, comfortable, NAD NCAT no hearing defecits, PER, MMM, no scleral icterus No increased WOB, decreased bases bilaterally RRR mood and affect normal neuro grossly intact skin warm and dry without abrasions/lacerations Objective: Vital Signs Temp Pulse Resp BP Pulse Ox 36.7 C 92 14 110/62 90 L 03/26/17 07:39 03/26/17 07:39 03/26/17 07:39 03/26/17 07:39 03/26/17 07:39 Laboratory Results 03/26/17 08:23 03/26/17 08:23 03/25/17 03/26/17 03/27/17 05:59 05:59 05:59 Intake Total 250 Balance 250 PT 13.5 SEC (12.0-15.0) 03/20/17 16:07 INR 1.04 (0.83-1.16) 03/20/17 16:07 - C-Spine Clearance Cervical Spine Cleared: Yes
--- NOTE | 2017-03-26 10:28 | PDHOMEO2F ---
Home Oxygen Face to Face Home Orders: I certify that a physician or a nurse practitioner or physician's medical staff assistant has had a [id number] encounter with this patient on the date of this order due to the diagnosis listed, which relates to the primary reason the patient requires home oxygen. Alternative treatments have been tried, or considered, and deemed ineffective. It is anticipated that supplemental oxygen will result in improvement with treatment. Home oxygen qualifying diagnosis: rib fractures, hypoxia Home oxygen secondary diagnosis: atelectasis SpO2 on room air (%): 85 Frequency of home oxygen needed: continuous Home oxygen liters per minute: 2 Home oxygen delivery device: nasal cannula Concentrator: Yes E-tanks for mobility and back up: Yes If ordering portable O2, is the patient mobile in the home?: Yes I certify that, based on these findings, the home oxygen is medically necessary for this patient for the following length of time. Length of time home oxygen needed: 1 month
[2017-03-26] MEDS: POLYETHYLENE GLYCOL 3350 17 GM PKT PO PRN (10:55)
--- NOTE | 2017-03-26 11:02 | ASMTCMCOM ---
CM Note CM Note Notes: Discussed w/RN, will dc home w/[facility] (RN), Ping notified. RN to call report, will transport pt home. Date Signed: 03/26/2017 11:02 AM Electronically Signed By:Dana Plaza RN
--- NOTE | 2017-03-26 14:48 | ASDISCHSUM ---
Discharge Information Plan Status:Home with Home Health Medically Cleared to Leave: Discharge Date:03/26/2017 11:30 AM CM D/C Disposition:Home Health Service ADT D/C Disposition:Home, Routine, Self-Care Projected Discharge Date:03/24/2017 05:00 PM Transportation at D/C:Family Discharge Delay Reason: Follow-Up Date:03/24/2017 05:00 PM Discharge Slot: Final Diagnosis:Rib fxs, Pneumothorax Placement Information Patient Contact Information Contact Name:SD Relationship: Address:[address] City:[place] Alternate Phone: [facility] Code:[place] [address] Email: Financial Information Financial Class: Primary Plan Desc:[employer] [place] Primary Plan Number:[id number] Secondary Plan Desc: Secondary Plan Number: Assessment Information [facility] Progress Note CM Note CM Note Notes: 73 year old male, fell 6' from a ladder, sustained rib fx's and pneumothorax. Patient has a hx of HTN. Neuro intact. will be discharged today when pain is controlled. Lives with his . RT to set up home O2. No other dischage needs. Date Signed: 03/21/2017 04:34 PM Electronically Signed By:Tyra Carter LCSW [facility] CM Progress Note CM Note CM Note Notes: ALESHIA spoke w/ WILEY Schaffer regarding d/c POC. Pt needs either a recliner or a pillow wedge to rest up right. CM met w/ pt and provided info to obtain a pillow wedge from the [employer] in [place]. Pt will most likely d/c independent w/out any needs. CM available for changes. Date Signed: 03/23/2017 11:50 AM Electronically Signed By:DEREJE Gotti [facility] Progress Note CM Note CM Note Notes: is requesting for HC; RN services through [facility]. Lovanox has been started today. CM spoke w/ MD regarding d/c POC. CM made a referral through [facility]. [facility] are willing to accept pt. CM to follow. Date Signed: 03/24/2017 10:36 AM Electronically Signed By:DEREJE Gotti [facility] CM Progress Note CM Note CM Note Notes: Discussed w/RN, will dc home w/[facility] ([facility]), Ping notified. RN to call report, will transport pt home. Date Signed: 03/26/2017 11:02 AM Electronically Signed By:Dana Plaza RN Intervention Information
--- NOTE | 2017-03-26 15:08 | PDIAF ---
- Diagnosis Diagnosis: R rib fractures Code Status: Full Code - Medication Management Discharge Medications: Medications to Continue on Transfer Aspirin [Aspirin 81mg (*)] 81 mg PO DAILY 03/20/17 [Last Taken 03/19/17] Atorvastatin Calcium [Lipitor 40 mg (*)] 40 mg PO DAILY 03/20/17 [Last Taken 11/28] Losartan Potassium [Cozaar 25 mg (*)] 25 mg PO DAILY 03/20/17 [Last Taken ] Metoprolol Tartrate [Lopressor 50 mg (*)] 50 mg PO BID 03/20/17 [Last Taken 12/28 AM] Acetaminophen [Tylenol 325mg (*)] 650 mg PO Q6H PRN tab 03/26/17 [Last Taken Unknown] Cyclobenzaprine [Flexeril 10 MG (*)] 10 mg PO TID #42 tab 03/26/17 [Last Taken Unknown] Ibuprofen [Motrin (*)] 600 mg PO Q6HRS PRN #0 tab 03/26/17 [Last Taken Unknown] Pantoprazole Sodium [Protonix 40mg (*)] 40 mg PO DAILY #30 tab 03/26/17 [Last Taken Unknown] oxyCODONE CR [Oxycontin] 20 mg PO BID 14 Days #28 tab 03/26/17 [Last Taken Unknown] oxyCODONE IR [Oxycodone Ir (*)] 5 mg PO Q4H PRN #20 tab 03/26/17 [Last Taken Unknown] Discharge Medications: Refer to the Discharge Home Medication list for PRN reason. - Orders Services needed: Home Care, Registered Nurse Home Care Face to Face: I certify that this patient was under my care and that I had the required [id number] encounter meeting the encounter requirements on the discharge day. My findings support the fact that the patient is homebound as defined in Home Care Face to Face Continued: CMS Chapter 7 Medicare Benefits Manual 30.1.1 , The condition of the patient is such that there exists a normal inability to leave home and consequently, leaving home would require a considerable and taxing effort. Oxygen: 2L Diet Recommendation: no restrictions on diet Diet Texture: Regular Texture Diet - Follow Up Care Current Providers and Referrals: Angeles Middleton MD [Medical Doctor] - Alexey Bear DO [Primary Care Provider] - As per Instructions
--- NOTE | 2017-03-26 17:03 | GDS ---
[f rep st] DISCHARGE SUMMARY ADMITTING DIAGNOSES: 1. Right rib fractures. 2. Pneumothorax. SECONDARY DIAGNOSES: 1. Hypertension. 2. Right pleural effusion with atelectasis. REASON FOR ADMISSION: The patient is a 61-year-old man who fell from a ladder. He landed on the lad aleksandr and his right chest. He presented to the emergency room complaining of difficulty breathing and chest pain. He was found to have right rib fractures 7, 8, 9 and small right pneumothorax. He was a dmitted for observation and pain control. HOSPITAL COURSE: He was followed with serial chest x-rays. There was an attempt to discharge on 01/2017, but this was held due to pain crisis. On 03/23/2017, he developed acute chest pain. A stat chest x-ray was negative. Chest CT angiogram was negative for pulmonary emboli. His pain continued to improve through his hospital course, and he was ready for discharge on 03/26/2017 with his pain c ontrolled with oral pain medication. He was working with physical therapy and occupational therapy t ough his hospital stay. He will be sent home with an incentive spirometer, and instructed to regis nue to cough and deep breathe. CONDITION: He is being discharged home in stable condition. Pain is controlled with oral pain medic ation. Tolerating regular diet and ambulating independently. DISCHARGE INSTRUCTIONS AND FOLLOWUP: He will follow up with Dr. Angeles Middleton in 1 week. He will obta in a chest x-ray prior to his appointment. He will continue to ambulate, cough, and deep breathe, as well as work with incentive spirometry. He was discharged home with supplemental oxygen, which he w ill use continuously. He understands to call our office with any worsening symptoms, questions, or c oncerns. DISCHARGE MEDICATIONS: He was sent home with prescriptions for Flexeril, OxyContin, oxycodone IR, an d Protonix. He was instructed to resume home medications. Please see EMR for further detail. /[id number]/MODL
== END 2017-03-26 11:30 | disposition home health service (06) | DRG 948 ==
LOC: F3N 18:27 → OBSVTOIN 03-21 19:13 → F3E 03-22 17:33
PROVIDERS: ADMIT Surgery; ATTEND Surgery
DX: G89.11 Acute pain due to trauma (principal); S22.41XA Multiple fractures of ribs, right side, initial encounter for closed fracture; W11.XXXA Fall on and from ladder, initial encounter; S27.0XXA Traumatic pneumothorax, initial encounter; J40 Bronchitis, not specified as acute or chronic; Z72.0 Tobacco use; I10 Essential (primary) hypertension; G47.33 Obstructive sleep apnea (adult) (pediatric); R09.02 Hypoxemia; Y92.9 Unspecified place or not applicable; Z23 Encounter for immunization
CPT/HCPCS: 96374; 97116-GP; 97161-GP; 97165-GO; 97530-GO; 97535-GO; G0008; G0378; G0480; J1170; J1650; J1885; J2405; J3010; Q9967

== ENCOUNTER → 2017-04-02 | Outpatient (CLI) | payer MEDICAID | LOC: FIMAGING 14:18 | PROVIDERS: ATTEND Physician Assistant Surgical | DX: S22.41XA Multiple fractures of ribs, right side, initial encounter for closed fracture (principal); K59.00 Constipation, unspecified; J90 Pleural effusion, not elsewhere classified; J98.4 Other disorders of lung ==

== ENCOUNTER → 2018-10-10 | Outpatient (CLI) | payer MEDICAID | LOC: GIMAGING 11:08 → EDSTATUS 13:02 | PROVIDERS: ATTEND Family Medicine | DX: S22.39XA Fracture of one rib, unspecified side, initial encounter for closed fracture (principal); X58.XXXA Exposure to other specified factors, initial encounter | CPT/HCPCS: 71100-PO ==